=== PATIENT | male | born 1995 | race Caucasian/White ===

== ENCOUNTER 2018-04-15 09:21 | Observation (INO) | payer SELFPAY ==
[~2018-04-15 09:21] MED LIST: DEXAMETHASONE SOD PHOSPHATE INJ 4 MG/1 ML VIAL ONE; GLYCOPYRROLATE 1 MG/5 ML SYRINGE ONE; KETOROLAC TROMETHAMINE 60 MG/2 ML SDV ONE; LIDOCAINE 2% INJ-PF (20 MG/ML) 2 ML AMPUL ONE; METOCLOPRAMIDE HCL INJ/PF 10 MG/2 ML SDV ONE; NEOSTIGMINE METHYLSULFATE 10 MG/10 ML VIAL ONE; ONDANSETRON HCL INJ/PF 4 MG/2 ML SDV ONE; ROCURONIUM BROMIDE INJ 50 MG/5 ML VIAL IV ONE; SUCCINYLCHOLINE CHLORIDE INJ 200 MG/10 ML VIAL ONE
[2018-04-15] MEDS ORDERED: IBUPROFEN 600 MG TABLET PO ONE (10:00)
--- NOTE | 2018-04-15 10:02 | ER Document Report ---
ED Medical Screen (RME) - General Chief Complaint: Testicular Swelling Stated Complaint: SWOLLEN SCROTUM Time Seen by Provider: 04/15/18 09:56 Notes: Patient is a 23-year-old male that presents to the emergency department for chief complaint of right testicular swelling and pain. Denies dysuria or hematuria, first noticed this last night. ROS: Other than noted above, the 12 point review of systems was reviewed with the patient and were negative, all pertinent findings are included in the HPI. PHYSICAL EXAMINATION: Vital signs reviewed. GENERAL: Well-appearing, well-nourished and in no acute distress. HEAD: Atraumatic, normocephalic. EYES: Pupils equal round extraocular movements intact, conjunctiva are normal. ENT: Nares patent NECK: Normal range of motion CV: Heart regular rate and rhythm LUNGS: No respiratory distress Musculoskeletal: Normal range of motion Male genital: The right scrotum and testicle appears to be swollen, mild tenderness to palpation, vertical lie bilaterally, cremasteric reflex appears intact bilaterally. NEUROLOGICAL: Normal speech PSYCH: Normal mood, normal affect. MDM: Patient seen and examined for rapid initial assessment. Vital signs reviewed. A comprehensive ED assessment and evaluation of the patient, analysis of test results and completion of the medical decision making process will be conducted by additional ED providers. *Note is created using voice recognition software and may contain spelling, syntax or grammatical errors. TRAVEL OUTSIDE OF THE [place] IN LAST 30 DAYS: No - Related Data Allergies/Adverse Reactions: No Known Allergies Allergy (Verified 04/15/18 09:29) Past Medical History - Social History Frequency of alcohol use: None Drug Abuse: None Renal/ Medical History: Denies: Hx Peritoneal Dialysis Physical Exam - Vital signs Vitals: Temp Pulse Resp BP Pulse Ox 98.7 F 88 16 138/88 H 98 04/15/18 09:43 04/15/18 09:43 04/15/18 09:43 04/15/18 09:43 04/15/18 09:43 Course - Vital Signs Vital signs: Temp Pulse Resp BP Pulse Ox 98.7 F 88 16 138/88 H 98 04/15/18 09:43 04/15/18 09:43 04/15/18 09:43 04/15/18 09:43 04/15/18 09:43
--- NOTE | 2018-04-15 11:15 | RADIOLOGY REPORT (SQ) ---
EXAM DESCRIPTION: U/S SCROTUM W/DOPPLER COMPLETED DATE/TIME: 04/15/2018 11:02 am REASON FOR STUDY: right testicle swelling and pain COMPARISON: None. TECHNIQUE: Static and realtime may scale imaging of the scrotum and testes. Selected color Doppler and spectral images recorded to document blood flow. LIMITATIONS: None. FINDINGS: RIGHT: TESTICLE: Normal size, 3.1 x 3.1 x 2.7 cm in size. Normal echotexture. Normal blood flow. No mass. EPIDIDYMIS: Normal. HYDROCELE OR VARICOCELE: Large right hydrocele HERNIA OR EXTRA-TESTICULAR MASS: Yes, right inguinal hernia through which mesenteric fat and bowel lo ops protrude into the right upper hemiscrotum OTHER: No other significant finding. LEFT: TESTICLE: Normal size, 3.9 x 3.1 x 2.1 cm in size. Normal echotexture. Normal blood flow. No mass. EPIDIDYMIS: Normal. HYDROCELE OR VARICOCELE: No. HERNIA OR EXTRA-TESTICULAR MASS: No. OTHER: No other significant finding. IMPRESSION: Right-sided inguinal hernia with moderate right hydrocele No sonographic evidence of acute testicular torsion TECHNICAL DOCUMENTATION: JOB ID: [id number]- All Rights Reserved Reading location - IP/workstation name: [email or web address]
--- NOTE | 2018-04-15 11:47 | ER Document Report ---
ED General - General Chief Complaint: Testicular Swelling Stated Complaint: SWOLLEN SCROTUM Time Seen by Provider: 04/15/18 09:56 TRAVEL OUTSIDE OF THE [place] IN LAST 30 DAYS: No - HPI Notes: Patient is a 23-year-old male no significant past medical history who presents to the ED complaining of right inguinal and right testicular/scrotal swelling that began last evening without precipitating event. Patient states that he has had some pain associated that does not radiate. He denies any drug allergies. Patient states that he is urinating normally and having normal bowel movements he has no concern of STD or STI. He has never had this before. He is able to eat and drink without any difficulties. Denies any headache, fever, neck pain, URI, sore throat, chest pain, palpitations, syncope, cough, shortness of breath, wheeze, dyspnea, nausea/vomiting/diarrhea, urinary retention, dysuria, hematuria, or rash. - Related Data Allergies/Adverse Reactions: No Known Allergies Allergy (Verified 04/15/18 09:29) Past Medical History - Social History Smoking Status: Never Smoker Frequency of alcohol use: None Drug Abuse: None Family History: Reviewed & Not Pertinent Patient has suicidal ideation: No Patient has homicidal ideation: No Renal/ Medical History: Denies: Hx Peritoneal Dialysis Review of Systems - Review of Systems -: Yes All other systems reviewed and negative Physical Exam - Vital signs Vitals: Temp Pulse Resp BP Pulse Ox 98.7 F 88 16 138/88 H 98 04/15/18 09:43 04/15/18 09:43 04/15/18 09:43 04/15/18 09:43 04/15/18 09:43 - Notes Notes: PHYSICAL EXAMINATION: GENERAL: Well-appearing, well-nourished and in no acute distress. LUNGS: Breath sounds clear to auscultation bilaterally and equal. No wheezes rales or rhonchi. HEART: Regular rate and rhythm without murmurs, rubs, gallops. ABDOMEN: Soft, nontender, nondistended abdomen. No guarding, no rebound. No masses appreciated. Normal bowel sounds present. No CVA tenderness bilaterally. : + hernia rt inguinal that is not easily assessed. Appears to be reducible at this time. No erythema. + rt scrotal swelling. No obvious transverse lie. Cremasteric appears to be intact b/l. No urethral discharge or rash. Musculoskeletal: FROM to passive/active. Strength 5+/5. Extremities: No cyanosis, clubbing, or edema b/l. Peripheral pulses 2+. Capillary refill less than 3 seconds. NEUROLOGICAL: Normal speech, normal gait. Normal sensory, motor exams PSYCH: Normal mood, normal affect. SKIN: Warm, Dry, normal turgor, no rashes or lesions noted. Course - Re-evaluation Re-evalutation: 04/15/18 11:[address] Reed. Noted rt inguinal hernia on exam. Reducible by my exam, but is most likely causing the large hydrocele, rt. + tenderness with palp in the area. 04/15/18 13:04 Dr. Reed evaluated the patient and will take him to the operating room. Patient has been n.p.o. since last evening for solid food and this morning for water. - Vital Signs Vital signs: Temp Pulse Resp BP Pulse Ox 98.7 F 88 16 138/88 H 98 04/15/18 09:43 04/15/18 09:43 04/15/18 09:43 04/15/18 09:43 04/15/18 09:43 Discharge - Discharge Clinical Impression: Right inguinal hernia, Right hydrocele Condition: Stable Disposition: ADMITTED INPATIENT Admitting Provider: Surgicalist - Dr. Reed Unit Admitted: Surgical Floor
[2018-04-15 12:46] LABS: APPEARANCE,URINE SLIGHTLY-CLOUDY; BILIRUBIN,URINE NEGATIVE (NEGATIVE); COLOR,URINE YELLOW; GLUCOSE, URINE NEGATIVE (NEGATIVE); KETONES,URINE NEGATIVE (NEGATIVE); LEUKOCYTE ESTERASE,URINE NEGATIVE (NEGATIVE); NITRITE,URINE NEGATIVE (NEGATIVE); PROTEIN,URINE NEGATIVE (NEGATIVE); URINE SPECIFIC GRAVITY 1.011; UROBILINOGEN,URINE NEGATIVE mg/dL (<2.0)
[2018-04-15] MEDS ORDERED: CEFAZOLIN INJ 1 GM VIAL IV ONE (13:17)
--- NOTE | 2018-04-15 13:20 | PDOC H&P ---
History of Present Illness Admission Date/PCP: 04/15/18 Patient complains of: right inguinal pains History of Present Illness: ANGELINE PETERSEN is a 23 year old male who suddenly c/o right inguinal pains. Seen at ED today and noted to have an incarcerated right inguinal hernia. Denies nausea or vomiting. Apparently has been coughing. Denies lifting any heavy object. Denies fever/chills,dysuria,chest pains,diarrhea nor constipation. Social History Smoking Status: Never Smoker - Advance Directive Resuscitation Status: Full Code Family History Family History: Reviewed & Not Pertinent Parental Family History Reviewed: Yes Children Family History Reviewed: No Sibling(s) Family History Reviewed.: No Medication/Allergy Home Medications: No Home Medications 04/15/18 Allergies/Adverse Reactions: No Known Allergies Allergy (Verified 04/15/18 09:29) Review of Systems Constitutional: PRESENT: as per HPI Neurological: PRESENT: other - no seizures Hematologic/Lymphatic: PRESENT: other - no easy bruising Physical Exam Vital Signs: Temp Pulse Resp BP Pulse Ox 98.7 F 88 16 138/88 H 98 04/15/18 09:43 04/15/18 09:43 04/15/18 09:43 04/15/18 09:43 04/15/18 09:43 Intake & Output 04/14/18 04/15/18 04/16/18 06:59 06:59 06:59 Weight 59 kg General appearance: PRESENT: mild distress Head exam: PRESENT: atraumatic Eye exam: PRESENT: conjunctiva pink Mouth exam: PRESENT: moist Neck exam: PRESENT: full ROM Respiratory exam: PRESENT: clear to auscultation mer Cardiovascular exam: PRESENT: RRR Pulses: PRESENT: normal radial pulses Vascular exam: PRESENT: normal capillary refill GI/Abdominal exam: PRESENT: hernia - incarcerated right inguinal hernia going to the scrotum, Able to partially reduced it but comes back out easily Rectal exam: PRESENT: deferred Extremities exam: PRESENT: full ROM Musculoskeletal exam: PRESENT: ambulatory Neurological exam: PRESENT: alert, oriented to person, oriented to place, oriented to time, oriented to situation Psychiatric exam: PRESENT: appropriate affect Skin exam: PRESENT: normal color, warm Results Laboratory Results: 04/15/18 10:55 Urine Color YELLOW Urine Appearance SLIGHTLY-CLOUDY Urine pH 7.0 Ur Specific [place] 1.011 Urine Protein NEGATIVE Urine Glucose (UA) NEGATIVE Urine Ketones NEGATIVE Urine Blood NEGATIVE Urine Nitrite NEGATIVE Ur Leukocyte Esterase NEGATIVE Urine WBC (Auto) 0 Urine RBC (Auto) 0 Impressions: Scrotum Ultrasound 04/15/18 09:59 IMPRESSION: Right-sided inguinal hernia with moderate right hydrocele No sonographic evidence of acute testicular torsion Assessment & Plan - Diagnosis (1) Incarcerated right inguinal hernia Is this a current diagnosis for this admission?: Yes (2) Right inguinal hernia Is this a current diagnosis for this admission?: Yes - Time Time Spent: 30 to 50 Minutes - Inpatient Certification Medical Necessity: Need For IV Fluids, Need for Pain Control, Need for IV Antibiotics, Need for Surgery - Plan Summary Plan Summary: Will reduce and repair incarcerated right inguinal hernia with use of mesh Will give prophylactic antibiotics
[2018-04-15] MEDS ORDERED: MIDAZOLAM 2 MG/2 ML INJ ONE (13:53)
[2018-04-15] MEDS ORDERED: EPHEDRINE SULFATE INJ 50 MG/1 ML AMPULE ONE (13:53)
[2018-04-15] MEDS ORDERED: ACETAMINOPHEN 1,000 MG/100 ML RTUPB IV ONE (13:53)
[2018-04-15] MEDS ORDERED: PROPOFOL INJ 200 MG/20 ML VIAL IV ONE (13:53)
[2018-04-15] MEDS ORDERED: FENTANYL CITRATE INJ/PF 250 MCG/5 ML AMPULE ONE (13:53)
[2018-04-15] MEDS ORDERED: PROMETHAZINE HCL INJ 25 MG/1 ML VIAL IV PRN ×2 (13:55)
[2018-04-15] MEDS ORDERED: ONDANSETRON HCL INJ/PF 4 MG/2 ML SDV IV PRN ×2 (13:55→16:37)
[2018-04-15] MEDS ORDERED: FENTANYL CITRATE INJ/PF 100 MCG/2 ML AMPUL IV PRN ×3 (13:55)
[2018-04-15] MEDS ORDERED: DIPHENHYDRAMINE HCL 50 MG/ML VIAL IV PRN (13:55)
[2018-04-15] MEDS ORDERED: MEPERIDINE HCL/PF INJ 25 MG/1 ML DISP.SYRIN IV PRN (13:55)
[2018-04-15] MEDS ORDERED: BUPIVACAINE HCL 0.5 % INJ/PF 30 ML SDV ONE (13:58)
[2018-04-15 14:05] LABS: ABSOLUTE EOSINOPHILS # (AUTO) 0.1 10^3/uL (0.0-0.6); ABSOLUTE LYMPHOCYTES (AUTO) 1.1 10^3/uL (0.5-4.7); ABSOLUTE MONOCYTES (AUTO) 0.5 10^3/uL (0.1-1.4); ABSOLUTE NEUT (AUTO) 8.5 10^3/uL (1.7-8.2); BASOPHILS % (AUTO) 0.3 % (0-2); EOSINOPHILS % (AUTO) 0.9 % (0-6); HEMATOCRIT 44.4 % (37.9-51.0); HEMOGLOBIN 14.8 g/dL (13.5-17.0); LYMPHOCYTES % (AUTO) 11.2 % (13-45); MEAN CORPUSCULAR HEMOGLOBIN 23.8 pg (27.0-33.4); MEAN CORPUSCULAR HGB CONC 33.4 g/dL (32.0-36.0); MEAN CORPUSCULAR VOLUME 71 fl (80-97); PLATELET COUNT 206 10^3/uL (150-450); RED BLOOD COUNT 6.22 10^6/uL (4.35-5.55); RED CELL DISTRIBUTION WIDTH 15.8 % (11.5-14.0); SEGMENTED NEUTROPHILS % (AUTO) 82.6 % (42-78); TOTAL CELLS COUNTED % (AUTO) 100 %; WHITE BLOOD COUNT 10.3 10^3/uL (4.0-10.5)
[2018-04-15 14:06] LABS: CHLAM PCR NOT DETECTED (NOT DETECT); GON PCR NOT DETECTED (NOT DETECT)
[2018-04-15 14:27] LABS: ANION GAP 11 (5-19); BLOOD UREA NITROGEN 10 mg/dL (7-20); CALCIUM 10.9 mg/dL (8.4-10.2); CARBON DIOXIDE 28 mmol/L (22-30); CHLORIDE 102 mmol/L (98-107); GLUCOSE 96 mg/dL (75-110); POTASSIUM 4.4 mmol/L (3.6-5.0); SODIUM 141.1 mmol/L (137-145)
[2018-04-15] MEDS ORDERED: SUGAMMADEX SODIUM 200 MG/2 ML SDV IV ONE (15:49)
[2018-04-15] MEDS ORDERED: DEXTROSE 5%-NORMAL SALINE 1,000 ML IV PRN (17:24)
[2018-04-15] MEDS: OXYCODONE-ACETAMINOPHEN 5-325 MG TABLET PO PRN (20:23)
[2018-04-15] MEDS: CEFAZOLIN 1 GM/D5W RTU 1 GM/50 ML RTUPB IV SCH (21:46)
--- NOTE | 2018-04-15 22:27 | OPERATIVE REPORT E ---
Operative Report NAME: ANGELINE PETERSEN : 1995 AGE: 23Y DATE OF SURGERY: 04/15/2018 ROOM: [id number] PREOPERATIVE DIAGNOSIS: Incarcerated right inguinal hernia. POSTOPERATIVE DIAGNOSIS: Incarcerated right inguinal hernia. PROCEDURE DONE: Reduction of incarcerated right inguinal hernia and repair with mesh. SURGEON: YESENIA MCGEE M.D. ANESTHESIA: General. INDICATION: This is a 23-year-old male who noted pains along the right groin this morning. The patient went to ED and noted to have an incarcerated right inguinal hernia. An attempt to reduce it was done in the ED but could only be partially reduced and easily comes back. Because of this the patient was taken to the OR. DESCRIPTION OF PROCEDURE: After adequate general anesthesia the patient was placed in the supine position and the right groin was then prepped and draped in the usual sterile fashion. Appropriate timeout was then called. Next a right inguinal incision was made and carried through the Jermaine's and to the external oblique aponeurosis. External oblique aponeurosis was then opened towards the internal ring. The sac was then identified and noted to be going into the scrotal area. It was subsequently divided at the mid part and an omentum that is incarcerated was noted. The omentum was then pushed back into the abdominal cavity. The defect on the hernia sac at the neck was about 1.5 or less cm in diameter. After the omentum was pushed back into the abdominal cavity the rest of the sac was then dissected down to the neck bluntly and with the use of cautery. The sac was then closed with a pursestring suture using 2-0 Vicryl suture. The excess sac was then trimmed and subsequently dropped into the abdominal cavity. A medium mesh plug was then used plug the defect. The mesh was sutured to the shelving portion of the inguinal ligament and to the conjoint tendon. Another mesh was laid on top of the cone shaped mesh and sutured to the symphysis pubis and towards the conjoint tendon and a shelving portion of the inguinal ligament and wrapped loosely around the cord structures. An inguinal nerve was identified and preserved. The external oblique aponeurosis was subsequently reapproximated over the cord structures and mesh. The internal ring was recreated. Next the Jermaine's was then reapproximate with interrupted suture using 2-0 Vicryl and subcu closure and interrupted sutures using 3-0 Vicryl undyed. Sterile dressings were placed. A skin glue was used to dress the wound. The patient tolerated the procedure well. Needle, instrument, and sponge counts were all correct. Estimated blood loss about 10 mL. The patient then brought back to the recovery room in satisfactory condition and extubated. DICTATING PHYSICIAN: YESENIA MCGEE M.D. [id number] PHY#: [id number] ID: [id number] JOB#: [id number] ACCT: [id number] cc:YESENIA MCGEE M.D. >
[2018-04-16] MEDS ORDERED: OXYCODONE-ACETAMINOPHEN 5-325 MG TABLET PO PRN (06:43)
[2018-04-16] MEDS ORDERED: MORPHINE SULFATE 10 MG/ML INJ IV PRN (06:43)
[2018-04-16] MEDS: OXYCODONE-ACETAMINOPHEN 5-325 MG TABLET PO PRN (07:49)
[2018-04-16] MEDS: CEFAZOLIN 1 GM/D5W RTU 1 GM/50 ML RTUPB IV SCH (07:50)
[2018-04-16 08:29] VITALS: BP 156/88
== END 2018-04-16 10:00 | disposition home or self-care (01) ==
LOC: ER 09:21 → EH 13:04 → INTOOBSV 13:04 → 4N 17:04
PROVIDERS: ATTEND Surgery
PROC: 0YU50JZ Supplement Right Inguinal Region with Synthetic Substitute, Open Approach (ICD-10-PCS; principal; 2018-04-15 13:45)
DX: K40.30 Unilateral inguinal hernia, with obstruction, without gangrene, not specified as recurrent (principal); N43.3 Hydrocele, unspecified
CPT/HCPCS: 99284; 36415; 87040; 85025; 80048; 81001; 87491; 87591; 76870; 93976; 49507; G0378 ×3; C1781; J2250; J3490 ×4; J0690 ×2; J1100; J1885; J3010; J2765; J0330; J2405 ×2; J2704; J0131; 830